=== PATIENT | female | born 1955 | race Caucasian/White ===

== ENCOUNTER 2018-02-04 10:25 | Day surgery (SDC) | payer OTHER ==
[2018-02-04] MEDS ORDERED: FENTAnyl 50 MCG/ML VIAL (13:01)
[2018-02-04] MEDS ORDERED: MIDAZOLAM 1 MG/ML 2 ML INJ (13:01)
== END 2018-02-04 13:54 | disposition home or self-care (01) ==
LOC: GIL 10:25
DX: K44.9 Diaphragmatic hernia without obstruction or gangrene (principal); K21.9 Gastro-esophageal reflux disease without esophagitis; K29.70 Gastritis, unspecified, without bleeding
CPT/HCPCS: 43239; 88305; 88312